=== PATIENT | female | born 1935 | race Caucasian/White ===

== ENCOUNTER 2017-10-10 11:03 | Observation (INO) | payer OTHER ==
[2017-10-09 10:05] VITALS: BMI 23.0
[~2017-10-10] VITALS: Ht 167.6 cm; Wt 65.9 kg
[2017-10-10] VITALS (7 sets, daily range): BP systolic 127–176; BP diastolic 49–77; PULSE 55–69; TEMP 36.3–36.7; O2SAT 94–100; Ht 167.6 cm; Wt 65.9 kg
--- NOTE | 2017-10-10 07:39 | HISTORY & PHYSICAL EXAMINATION ---
DATE OF ADMISSION: 10/10/2017 SUBJECTIVE AND CHIEF COMPLAINT: Left ankle pain. HISTORY OF PRESENT ILLNESS: This is a patient who has been seen for an acute onset of left ankle swelling and pain and difficulty with ambulation. She had been treated for cellulitis with by mouth antibiotics; however, she had persistent pain. Aspiration of the left ankle joint was attempted on 2 separate occasions, 1 did not get any aspirate, the other got a very small amount with 1 colony of bacteria ground. She also had an MRI which noted inflammatory tissue around the peroneal tendons and there was questionable for a phlegmon. The patient was seen yesterday 10/08/2017 with persistent pain and swelling and she is now being set up for surgical management. PAST MEDICAL HISTORY: Hypertension, history of low back pain, hiatal hernia and diabetes. SOCIAL HISTORY: The patient denies alcohol and tobacco use. PAST SURGICAL HISTORY: None. CURRENT MEDICATIONS: Vitamin D3 400 mg 1 p.o. daily, biotin 1 mg 1 p.o. daily, vitamin C 500 mg 1 p.o. daily, glipizide 5 mg 1 p.o. b.i.d., metformin ER 500 mg 2 tablets p.o. at bedtime, metronidazole 0.75% topical cream apply to affected area b.i.d., aspirin 81 mg 1 p.o. daily, tolterodine ER 4 mg 1 p.o. daily, atenolol 50 mg 1 p.o. daily; Estring 2 mg vaginal ring, insert 1 vaginal ring every 90 days; nitrofurantoin 100 mg 1 p.o. every 6 hours, naproxen 500 mg 1 p.o. b.i.d. with food. ALLERGIES: PSEUDOEPHEDRINE, LORATADINE, AND PREDNISONE. FAMILY HISTORY: Noncontributory. OBJECTIVE PHYSICAL EXAMINATION: GENERAL: The patient is alert and oriented x3. He is in no acute distress. She is a well-dressed, well-nourished 82-year-old female. Her affect is appropriate. CARDIOVASCULAR: Heart has a regular rhythm and rate. LUNGS: Clear to auscultation bilateral. Dorsalis pedis, posterior tib pulses are +2/4. LYMPHATIC: No evidence of any swollen lymph nodes. MUSCULOSKELETAL: The patient has a left antalgic gait with partial weightbearing on the left lower extremity. Upon inspection of left lower extremity, the patient is noted to have swelling and edema along the peroneal tendons to the area of the fourth and fifth tarsometatarsal joints. This area of edema is pitting. It is tender to palpation. There is mild erythema noted, no obvious warmth when compared to the rest of the foot. She has also noted to have tenderness at the anterolateral aspect of the ankle joint. Any passive range of motion causes pain in the left ankle. No strength testing was performed secondary to pain. SKIN: There are no scars, rashes or ulcers noted. NEUROLOGIC: Sensation normal and intact distally, left lower extremity. X-RAY EXAM: MRI of the left ankle was reviewed. There is mild tibiotalar fusion. There is also inflammatory tissue around the peroneal tendons. ASSESSMENT AND DIAGNOSES: 1. Left ankle peroneal tendonitis with possible phlegmon surrounding the peroneal tendons. 2. Left ankle pain with possible septic joint. PLAN: Above assessment was discussed with the patient. At this time, it was recommended the patient undergo a left ankle arthroscopy with synovectomy and debridement of the ankle joint and open tenosynovectomy of the peroneal tendons. All potential risks, benefits, complications, alternatives and rehab have been discussed with the patient and at this time, she wishes to proceed with the surgery as indicated. She will be scheduled for the surgery on 10/10/2017. MELIA
[~2017-10-10 11:03] MED LIST: ASPI81TA28 PO; ATEN50TA8 PO; BIOT1CAP8 PO; CEFAZOLIN 2000MG IV PUSH 15 ML IV SCH; DTRSR4 PO; GLC/500 PO; GLIP-197 PO; LACTATED RINGER'S 1000ML 1,000 ML IV SCH; NAPR-1169 PO; PREMARIN TOP; ROPIVACAINE 0.5% 5 MG/ML 30 ML VIAL ONE
[2017-10-10] MEDS ORDERED: ATROPINE SULFATE 0.1 MG/ML 5ML SYR IV PRN (11:15)
[2017-10-10] MEDS ORDERED: EpHEDrine SULFATE INJ 50 MG/ML AMP IV PRN (11:15)
[2017-10-10] MEDS ORDERED: FENTANYL CITRATE INJ 50 MCG/1 ML 2 ML VIAL IV PRN (11:15)
[2017-10-10] MEDS ORDERED: ONDANSETRON INJ 2 MG/ML 2 ML VIAL IV PRN ×2 (11:15→18:15)
[2017-10-10] MEDS ORDERED: CRAN500C2 PO (11:51)
[2017-10-10] MEDS ORDERED: BUPIVACAINE/EPINEPHRINE 0.5% MPF 1:200,000 30 ML VIAL ONE (12:03)
[2017-10-10] MEDS ORDERED: EpINEphrine HCL INJ 1 MG/ML 1ML SYRINGE ONE (12:03)
[2017-10-10] MEDS ORDERED: LIDOCAINE HCL 2% 2 ML VIAL (20MG/ML) ONE (12:46)
[2017-10-10] MEDS ORDERED: PROPOFOL IV EMULSION 10 MG/ML 20 ML VIAL IV ONE (12:46)
[2017-10-10] MEDS ORDERED: MIDAZOLAM HCL 1 MG/ML 2ML VIAL ONE (12:46)
[2017-10-10] MEDS ORDERED: ONDANSETRON INJ 2 MG/ML 2 ML VIAL ONE (12:46)
[2017-10-10] MEDS ORDERED: DEXAMETHASONE SOD INJ 4 MG/ML VIAL ONE (12:46)
[2017-10-10] MEDS ORDERED: FENTANYL CITRATE INJ 50 MCG/1 ML 2 ML VIAL ONE (12:47)
[2017-10-10] MEDS ORDERED: CIPROFLOXACIN 400MG / 200ML D5W ONE (13:22)
[2017-10-10] MEDS ORDERED: CIPROFLOXACIN 400MG / 200ML D5W IV ONE (13:30)
[2017-10-10 14:13] LABS: ISTAT CREATININE 0.8 mg/dl (0.6-1.3); ISTAT IONIZED CALCIUM 1.28 mmol/l (1.12-1.32); ISTAT POTASSIUM 3.9 mEq/L (3.3-5.0)
--- NOTE | 2017-10-10 15:05 | History & Physical Bridge Note ---
H&P Re-Evaluation Bridge Note: I have examined the patient, reviewed the History & Physical and in the interval since the performance of the History & Physical I have noted the following changes of clinical significance: No changes noted
[2017-10-10] MEDS ORDERED: BACITRACIN 50000 UNIT VIAL ONE (15:22)
[2017-10-10] MEDS ORDERED: GLYCOPYRROLATE INJ 0.2 MG/ML VIAL ONE (16:28)
--- NOTE | 2017-10-10 17:51 | [facility] Post Operative Brief Note ---
Immediate Operative Summary Operative Date Oct 10, 2017. Pre-Operative Diagnosis Left ankle peroneal tendonitis with possible phlegmon surrounding the peroneal tendons. Left ankle pain with possible septic joint. Post-Operative Diagnosis Left ankle severe peroneal tenosynovitis peroneal tendons. Partial tears of the peroneus longus and brevis Left ankle synovitis Left ankle lateral meniscoid lesion Exostosis lateral calcaneus Procedure(s) Performed 1. Left Ankle Arthroscopy with resection lateral meniscoid lesion, 2. Synovectomy ankle joint 3. Open Tenosynovectomy peroneus longus and brevis tendons 4. Debridement peroneus longus and brevis 5. Exostosectomy of lateral calcaneus Surgeon Dr. Jim Doll Transfer Controller Surgeon(s) none Estimated Blood Loss 5cc Findings Consistent with Post-Op Diagnosis Specimens microbiology for gram stain, aerobic and anaerobic cultures 1. tenosynovitis- left ankle Drains None Anesthesia Type General Regional Complication(s) none Disposition Accompanied Pt To Recover: no Disposition: Recovery Room / PACU
[2017-10-10] MEDS ORDERED: NON-FORMULARY MEDICATION (Biotin 1 MG) PO SCH (18:15)
[2017-10-10] MEDS ORDERED: CEFAZOLIN IV 1,000 MG in DEXTROSE 5% 50ML 50 ML IV SCH (18:15)
[2017-10-10] MEDS ORDERED: ALUMINUM/MAGNESIUM/SIMETH (MAALOX MAX) 30 ML UDC PO PRN (18:15)
--- NOTE | 2017-10-10 19:09 | Anesthesiology Progress Note ---
Anesthesia Post Op Note Date & Time Oct 10, 2017 at 19:09 Vital Signs Pain Intensity: 0 Vital Signs Past 12 Hours Date Time Temp Pulse Resp B/P (MAP) Pulse Ox O2 Delivery O2 Flow Rate FiO2 10/10/17 18:46 163/58 10/10/17 18:43 53 14 10/10/17 18:43 56 14 99 10/10/17 18:41 148/84 10/10/17 18:38 56 17 10/10/17 18:38 56 17 99 10/10/17 18:37 36.2 10/10/17 18:36 157/61 10/10/17 18:33 56 18 98 10/10/17 18:33 57 18 10/10/17 18:32 57 15 10/10/17 18:32 57 15 98 10/10/17 18:31 158/65 10/10/17 18:27 55 15 10/10/17 18:27 54 15 98 10/10/17 18:26 161/59 10/10/17 18:22 58 14 10/10/17 18:22 56 14 97 10/10/17 18:21 161/74 10/10/17 18:18 57 17 10/10/17 18:18 61 17 99 10/10/17 18:16 158/58 10/10/17 18:13 57 14 100 10/10/17 18:13 57 14 10/10/17 18:12 56 19 10/10/17 18:12 56 19 100 10/10/17 18:11 148/56 10/10/17 18:07 57 18 10/10/17 18:07 56 18 100 10/10/17 18:06 144/59 10/10/17 18:02 55 20 10/10/17 18:02 55 20 100 10/10/17 18:01 150/55 10/10/17 17:57 36.0 58 16 144/48 99 Oxymask 10 10/10/17 17:57 56 12 144/48 99 18 17:57 56 12 10/10/17 11:51 36.6 55 20 151/49 (83) 100 Room Air Notes Mental Status: alert / awake / arousable, participated in evaluation Pt Amnestic to Procedure: Yes Nausea / Vomiting: adequately controlled Pain: adequately controlled Airway Patency, RR, SpO2: stable & adequate BP & HR: stable & adequate Hydration State: stable & adequate Anesthetic Complications: no major complications apparent
[2017-10-10] MEDS ORDERED: POTASSIUM CHLORIDE INJ 10 MEQ in SODIUM CHLORIDE 0.9% 1000ML 1,000 ML IV SCH (19:45)
[2017-10-10] MEDS ORDERED: IV FLUIDS COMPLETED PRN (20:15)
--- NOTE | 2017-10-10 20:30 | OPERATIVE REPORT ---
DATE OF OPERATION: 10/10/2017 PREOPERATIVE DIAGNOSES: 1. Left ankle peroneal tendonitis of the peroneus longus and peroneus brevis. 2. Possible phlegmon peroneal tendons. 3. Left ankle pain with possible septic joint. POSTOPERATIVE DIAGNOSES: 1. Left ankle severe peroneal tenosynovitis of the peroneal tendons. 2. Partial tears of the peroneus longus and peroneus brevis. 3. Left ankle synovitis. 4. Left ankle lateral meniscoid lesion. 5. Exostosis of the lateral calcaneus. PROCEDURE: 1. Left ankle arthroscopy with resection of lateral meniscoid lesion. 2. Synovectomy of the ankle joint. 3. Open tenosynovectomy of the peroneus longus and peroneus brevis. 4. Debridement of peroneus longus and peroneus brevis. 5. Exostectomy of the lateral calcaneus. SURGEON: Hardik Doll DO STEEL PLATE CAULKER: None. ANESTHESIA: General with LMA and popliteal block. SPECIMENS: Aerobic, anaerobic, Gram stain cultures, tenosynovitis of the peroneus longus and peroneus brevis. DRAINS: None. COMPLICATIONS: None. BLOOD LOSS: 5 BLOOD LOSS: 5 mL. PERTINENT HISTORY: This is an 82-year-old woman who has had ongoing lateral ankle pain, redness, swelling, intermittently for the last month. She had several courses of oral antibiotics; however, continued to have pain, swelling and redness. She was seen in my orthopedic clinic this last week and radiographs and MRI were reviewed and clinical exam performed. The patient was then scheduled for surgery as indicated. All potential risks, benefits, complications, alternatives, rehab, potential for incomplete relief of symptoms, need for further surgery, DVT, PE, , persistent pain, swelling, scarring, weakness, neurovascular injury, wound complications were discussed with patient and her family and they decided to proceed with the procedure as indicated. DESCRIPTION OF PROCEDURE: The patient had a popliteal block in the preop holding area, then she was taken to the operative suite and placed supine on the operating room table. After review of consent and identification of proper operative site, patient was anesthetized, LMA was placed. Tourniquet was placed high on the left thigh over cast padding. Left lower extremity was then sterilely prepped and draped in usual fashion, elevated and the tourniquet was inflated to 325 mmHg. There was no exsanguination performed due to the possibility of infection of left lower extremity. Next, the ankle joint was injected with approximately 10 mL of 0.5% Marcaine with epinephrine, an 11 blade scalpel was used to make an incision medial to the tibialis anterior followed by placement of blunt trocar and sleeve camera and inflow. Next, lateral portal site was established under direct visualization using 18 gauge spinal needle and 11 blade scalpel incision. Next a 3.5 mm sucker shaver was introduced into the joint and diagnostic arthroscopy commenced, noting no evidence of ongoing infection in the ankle. There was noted to be significant synovitis and there was also noted to be a meniscoid lesion which appears symptomatic in the anterolateral aspect of the ankle. Next, 3.5 mm sucker shaver was then used to perform synovectomy and also resection of the meniscoid lesion of the lateral aspect of the ankle. Once this was completed, the joint surfaces were inspected and probed. There was noted to be no significant osteochondral lesions. There was noted to be area of slight softening along the superior medial aspect of the talus, otherwise unremarkable. At this point, the medial and lateral gutters were inspected and noted to be remarkable and then the arthroscope was then removed from the ankle joint, all excess fluid was expressed from the joint and the portal sites were closed with interrupted 4-0 nylon sutures. Next, a 15 blade scalpel was used to make a long curvilinear incision over the lateral aspect of the peroneal tendons. The incision was deepened through subcutaneous tissue. Meticulous hemostasis was achieved with electrocautery. Full thickness skin flaps were developed. Sensory cutaneous nerves retracted and protected followed by incision of the peroneal tendon sheath with a 15 blade scalpel. The tendons were noted to be coated in significant amount of hypertrophic tenosynovium and fibrous tissue. There appeared to be no obvious abscess or purulent fluid collection at this time. The tendons were retracted and the tendon sheath was then examined and noted to be significant tenosynovitis. Tenosynovectomy was performed of the tendon sheath and then sequentially of the peroneus longus and peroneus brevis with a rongeur and forceps. Once this was completed and there was noted to be several areas of partial tearing of the peroneus longus and peroneus brevis. At this point, the tendons were then sharply debrided with a 15 blade scalpel and a tenotomy scissor and forceps. After debridement and synovectomy had been performed, the tendons were retracted and protected. There was noted to be hypertrophic exostosis of the lateral aspect of the calcaneus. At this point, the hypertrophic exostosis was then resected using a rongeur. Next, the incision was then copiously irrigated with sterile normal saline. There was no abscess fluid or obvious active infection noted. The peroneal tendons were then placed back in the tendon sheath, and tendon sheath was then closed using 2-0 Vicryl. Next, the dermis was then closed using buried interrupted 3-0 Vicryl, skin was closed with 4-0 nylon. A sterile compressive dressing and bulky plaster splint was applied overwrapped with an Miguel Angel wrap. The foot was held in neutral dorsiflexion, patient was then awakened and tourniquet was released and patient was then taken to recovery in stable condition. I attest to the content of the Intraoperative Record and any orders documented therein. Any exception s are noted below.
[2017-10-10] MEDS ORDERED: GLUCOSE 10 TABS/TUBE PO PRN (20:45)
[2017-10-10] MEDS ORDERED: GLUCOSE 40% GEL 15 GM TUBE PO PRN (20:45)
[2017-10-10] MEDS ORDERED: DEXTROSE 50% 50 ML SYR IV PRN (20:45)
[2017-10-10] MEDS ORDERED: GLUCAGON FOR INJ 1 MG VIAL SQ PRN (20:45)
[2017-10-10] MEDS ORDERED: INSULIN ASPART 100 UNITS/ML 3 ML PEN SC SCH (21:00)
[2017-10-10] MEDS ORDERED: NAPROXEN 250 MG TAB PO SCH (21:00)
[2017-10-10] MEDS ORDERED: ASPIRIN 81 MG ECTAB PO SCH (21:00)
[2017-10-10] MEDS: DOCUSATE SODIUM 100 MG CAP PO SCH ×2 (21:57→22:02)
[2017-10-10] MEDS: TOLTERODINE TARTRATE LA 4 MG CAPCR PO SCH (21:57)
[2017-10-10] MEDS ORDERED: CIPROFLOXACIN 250 MG TAB PO SCH (22:00)
[2017-10-10] MEDS: CEFAZOLIN IV 1,000 MG in SYRINGE 0 ML IV SCH (23:55)
[2017-10-11] MEDS: OXYCODONE HCL IR 5 MG TAB (IMMEDIATE RELEASE) PO PRN (01:56)
[2017-10-11 03:20] VITALS: BP 134/62; PULSE 68; TEMP 36.4; O2SAT 96
[2017-10-11] MEDS ORDERED: INSULIN ASPART 100 UNITS/ML 3 ML PEN SC ONE (04:00)
[2017-10-11] MEDS ORDERED: INSULIN GLARGINE SOLOSTAR 100 UNITS/ML 3 ML PEN SC ONE ×2 (04:00→12:45)
[2017-10-11 04:39] LABS: BASO % 0.1 %; BASO ABS # 0.01 K/uL (0-0.2); HEMATOCRIT 27.9 % (37-47); HEMOGLOBIN 9.3 g/dL (12.0-16.0); IG# 0.01 K/uL (0.00-0.02); LYMPH % 14.2 %; LYMPH ABS # 0.95 K/uL (1.2-3.4); MEAN CELL VOLUME 90.3 fL (80-100); MEAN CORPUSCULAR HEMOGLOBIN 30.1 pg (25-34); MEAN CORPUSCULAR HGB CONC 33.3 g/dl (32-36); MEAN PLATELET VOLUME 10.1 fL (7.4-10.4); MONO % 4.9 %; MONO ABS # 0.33 K/uL (0.11-0.59); NEUT % 80.7 %; NEUT ABS # 5.39 K/uL (1.4-6.5); PLATELET COUNT 164 K/uL (130-400); RED CELL DISTRIBUTION WIDTH CV 13.5 % (11.5-14.5); RED CELL DISTRIBUTION WIDTH SD 43.9 fL (36.4-46.3); WHITE BLOOD COUNT 6.69 K/uL (4.8-10.8)
[2017-10-11 04:43] LABS: CALCIUM 8.3 mg/dl (8.5-10.1); CREATININE 1.14 mg/dl (0.60-1.20); POTASSIUM 4.1 mmol/L (3.5-5.1)
[2017-10-11] MEDS ORDERED: MAGNESIUM SULFATE 1GM / D5W 1 GM in PREMIXED IN D5W 100 ML IV ONE (05:15)
[2017-10-11] MEDS ORDERED: POTASSIUM CHLORIDE INJ 10 MEQ in SODIUM CHLORIDE 0.9% 1000ML 1,000 ML IV SCH (05:15)
[2017-10-11 07:10] VITALS: BP 136/67; PULSE 65; TEMP 36.6; O2SAT 96
[2017-10-11] MEDS ORDERED: PANTOprazole INJ 40 MG in SYRINGE 0 ML IV ONE (07:15)
[2017-10-11] MEDS: CEFAZOLIN IV 1,000 MG in SYRINGE 0 ML IV SCH (07:50)
[2017-10-11] MEDS: DOCUSATE SODIUM 100 MG CAP PO SCH ×2 (07:50→21:15)
[2017-10-11] MEDS: MULTIVITAMIN TAB PO SCH (07:51)
--- NOTE | 2017-10-11 07:56 | Orthopedic Progress Note ---
Orthopedic Progress Note Date of Service Oct 11, 2017. Subjective Post OP Day: 1 Reports: feeling well, pain controlled w PO medications, Denies: complaints, chest pain, SOB, nausea / vomiting, light headedness, calf pain Objective N/V intact, splint C/D/I, dressing C/D/I, A&O x3, toes mobile Date Time Temp Pulse Resp B/P (MAP) Pulse Ox O2 Delivery O2 Flow Rate FiO2 10/11/17 03:20 36.4 68 17 134/62 (86) 96 Room Air 10/11/17 00:00 Room Air 10/10/17 22:55 36.7 68 16 135/77 (96) 94 Room Air 10/10/17 22:02 36.3 69 16 144/64 (90) 95 Room Air 10/10/17 21:00 36.4 61 16 127/57 (80) 99 Nasal Cannula 2.5 10/10/17 20:06 36.3 56 16 171/65 (100) 99 Nasal Cannula 2.5 10/10/17 19:33 36.3 58 16 176/76 (109) 100 Nasal Cannula 2.5 10/10/17 19:00 100 Nasal Cannula 2.0 10/10/17 19:00 57 16 174/65 (101) 100 Nasal Cannula 2.0 10/10/17 19:00 100 Nasal Cannula 2.0 10/10/17 18:46 163/58 10/10/17 18:43 53 14 10/10/17 18:43 56 14 99 10/10/17 18:41 148/84 10/10/17 18:38 56 17 10/10/17 18:38 56 17 99 10/10/17 18:37 36.2 10/10/17 18:36 157/61 10/10/17 18:33 56 18 98 10/10/17 18:33 57 18 10/10/17 18:32 57 15 10/10/17 18:32 57 15 98 10/10/17 18:31 158/65 10/10/17 18:27 55 15 10/10/17 18:27 54 15 98 10/10/17 18:26 161/59 10/10/17 18:22 58 14 10/10/17 18:22 56 14 97 10/10/17 18:21 161/74 10/10/17 18:18 57 17 10/10/17 18:18 61 17 99 10/10/17 18:16 158/58 10/10/17 18:13 57 14 100 10/10/17 18:13 57 14 10/10/17 18:12 56 19 10/10/17 18:12 56 19 100 10/10/17 18:11 148/56 10/10/17 18:07 57 18 10/10/17 18:07 56 18 100 10/10/17 18:06 144/59 10/10/17 18:02 55 20 10/10/17 18:02 55 20 100 10/10/17 18:01 150/55 10/10/17 17:57 36.0 58 16 144/48 99 Oxymask 10 10/10/17 17:57 56 12 144/48 99 10/10/17 17:57 56 12 10/10/17 11:51 36.6 55 20 151/49 (83) 100 Room Air Laboratory Results 24 Hours: Test 10/11/17 04:11 White Blood Count 6.69 K/uL Red Blood Count 3.09 M/uL Hemoglobin 9.3 g/dL Hematocrit 27.9 % Mean Corpuscular Volume 90.3 fL Mean Corpuscular Hemoglobin 30.1 pg Mean Corpuscular Hemoglobin Concent 33.3 g/dl Platelet Count 164 K/uL Mean Platelet Volume 10.1 fL Neutrophils (%) (Auto) 80.7 % Lymphocytes (%) (Auto) 14.2 % Monocytes (%) (Auto) 4.9 % Eosinophils (%) (Auto) 0.0 % Basophils (%) (Auto) 0.1 % Neutrophils # (Auto) 5.39 K/uL Lymphocytes # (Auto) 0.95 K/uL Monocytes # (Auto) 0.33 K/uL Eosinophils # (Auto) 0.00 K/uL Basophils # (Auto) 0.01 K/uL Assessment & Plan Assessment: POD #1 s/p Left ankle arthroscopy with resection of lateral meniscoid lesion, Synovectomy of the ankle joint, Open tenosynovectomy of the peroneus longus and peroneus brevis, Debridement of peroneus longus and peroneus brevis, Exostectomy of the lateral calcaneus. -soft tissue intra-op cultures pending -remain in splint, ice/elevate for swelling, hold ASA patient noted to be anemic post op, has noted dark stools lately and heme +, discussed with dr gilbert, will order GI Consult for further evaluation as well as start Protonix
--- NOTE | 2017-10-11 08:20 | INTERNAL MEDICINE CONSULTATION ---
DATE OF CONSULTATION: 10/11/2017 PRIMARY CARE DOCTOR: Dr. Fleming from [place], [place]. REASON FOR CONSULTATION: Patient seen at request of Dr. Doll/Mr. Vlad Aranda PA-C for postop medical management. HISTORY OF PRESENT ILLNESS: Medical history significant for hypertension, hyperlipidemia, DM2 on oral meds, nonocclusive CAD, history of recurrent UTIs, urinary retention requiring intermittent straight cath. Patient has had left ankle swelling, pain for about a month now. Incomplete response to antibiotics, aspiration. Outpatient MRI showed inflammatory tissue around peroneal tendon questionable phlegmon. Patient underwent left ankle surgery yesterday. Patient told surgeon about few days history of cloudy urine, increased urinary frequency. No fever, no chills. Postop, no chest pain, or shortness of breath. Left ankle pain tolerable. MEDICAL HISTORY: As above. Normal endoscopy about 5 years ago as per patient. Last seen by [facility] May 2017. Last echo March 2017, EF 55-60%, minimal MR, TR, minimal aortic insufficiency. Last stress test 2013, no significant reversible ischemia. SURGERIES: She has had hysterectomy, ankle surgery, bladder tuck, breast biopsy. HOME MEDICATIONS: Include, aspirin, atenolol, biotin, glipizide, metformin, naproxen, tolterodine, Premarin. ALLERGIES: IBUPROFEN, LORATADINE, PREDNISONE, PSEUDOEPHEDRINE. FAMILY HISTORY: Heart disease, diabetes, breast cancer. PERSONAL AND SOCIAL HISTORY: Nonsmoker, no chronic intake of alcoholic beverages. Retired inclusion special education teacher. REVIEW OF SYSTEMS: As per HPI, occasional reflux symptoms, dark stools for some time now. No hematemesis, coffee-ground emesis. All other ROS negative. PHYSICAL EXAMINATION: VITAL SIGNS: Blood pressure was noted to be 134/62, pulse rate 68, RR 17, temperature 36.4, sats 96 on room air. GENERAL: Noted to be pleasant, comfortable, no respiratory distress. Looks younger for stated age. SKIN: Pallor, warm. HEENT: Pale palpebral conjuctivae. No ptosis. Dry mucosa. NECK: Short, supple. CHEST: Decreased breath sounds. No tenderness. HEART: Regular rate and rhythm, no murmur. ABDOMEN: Some distention, nontender. RECTAL: Intact sphincter, dark brown stool, heme positive. NEUROLOGIC: Coherent. No gross focality. EXTREMITIES: Dressing on the left lower extremity. Minimal LLE tenderness. LABORATORY STUDIES: Hemoglobin was noted to be 9.3, hematocrit 27.9, white cell count 6.67, platelets noted to be 164. Sodium noted to be 135, potassium 4.1, chloride 104, CO2 of 23, BUN 31, creatinine 1.14, glucose 197. UA, nitrite positive. ASSESSMENT: 1. Left ankle swelling, possible infection sp surgery. Patient not septic. 2. Complicated urinary tract infection, no sepsis. hx urinary retention, intermittent straight cath at home Currently on Cipro Rx 3. Upper gastrointestinal bleed. Suspect slow bleed given history of dark stools over the last several months. Possible etiologies include gastritis, peptic ulcer disease, tumor. 4. Anemia secondary above 5. HTN, stable 6. hx nonocclusive coronary artery disease as per records. 7. DM2 on oral meds, unknown baseline. Blood sugars slightly elevated following perioperative steroids. RECOMMENDATIONS : follow left ankle fluid CS. Follow urine cultures, Continue Cipro. (Watch out for anticholinergic symptoms from Cipro given patient's age.) Hold home ASA for now until source of GI bleed elucidated. Anemia workup Serial H&H, transfuse pRBC if hemoglobin less than 8. (hx CAD) IV PPI for now for presumptive UGIB, GI consult RE UGIB if Orthopedics agreeable. Basal insulin, ISS BG goal 140-180. Check hemoglobin A1c. DVT prophylaxis, SCDs RE GI bleed. Thank you very much for this consultation. Dr. Davies will follow the patient's progress. ADDENDUM : Case discussed with Mr. Lamonte Skelton, Orthopedic PA-C talent acquisition operations manager. He agrees with recommended GI workup. He will relay recommendations to Dr. Doll. [facility] CENTERLaura
[2017-10-11 08:23] LABS: HEMOGLOBIN A1C 6.5 % (4.5-5.6)
[2017-10-11] MEDS ORDERED: METFORMIN HCL 500 MG TAB PO SCH (09:00)
[2017-10-11] MEDS ORDERED: CRANBERRY PO SCH (09:00)
--- NOTE | 2017-10-11 09:01 | Gastrointestinal Consultation ---
Gastrointestinal Consultation Date of Consultation: Oct 11, 2017 History of Present Illness Patient is a 82 year old female who was admitted to the hospital for surgical evaluation of her left ankle. She was found to have some tenderness ruptured as well as areas that need to be debrided after having had antibiotics for about 2 months. Her surgery apparently went without issues last evening, general medicine was consulted for medical management. During their evaluation she reported that she's been having some intermittent dark stools over the last month, and was noted to be anemic. Her stool was checked apparently was heme positive. She denies any ongoing or active GI blood loss, last bowel movement was 2 and possibly 3 days prior. Over the last month she does report some intermittent dark stools but not black as she described it. She has been taking some Tylenol but denies any nonsteroidal anti -inflammatories. She says that she's had endoscopies in the past most recently about 5 years ago however those records are not available to us for review. She does have intermittent infrequent heartburn but feels well at this time. She tolerated a normal diet last evening. Vital signs pre-and postoperatively have been within normal limits. Social History Smoking Status: Never Smoker Allergies Coded Allergies: Ibuprofen (Verified Allergy, Unknown, RED FACE RASH WITH HIGHER DOSE, 10/10) Loratadine (Verified Adverse Reaction, Unknown, HEART FLUTTTERS, 10/10/17) Prednisone (Verified Adverse Reaction, Unknown, HEART RACES, 10/10/17) Pseudoephedrine (Verified Adverse Reaction, Unknown, HEART FLUTTTERS, 10/10) Current Medications Home Meds and Scripts Medications Dose Route/Sig Max Daily Dose Days Date Category Dose Instructions Cranberry (Cranberry (Vaccinium Macrocarp) 500 Mg Cap 1,000 Mg PO DAILY 10/10/17 Reported Naprosyn (Naproxen) 500 Mg Tab 500 Mg PO BID 10/09/17 Reported PT WILL CHECK WITH SURGEON Tenormin (Atenolol) 50 Mg Tab 50 Mg PO QAM 10/09/17 Reported Detrol LA (Tolterodine Tartrate) 4 Mg Capcr 1 Cap PO QPM 90 10/09/17 Reported Aspirin Ec (Aspirin) 81 Mg Tab 81 Mg PO QPM 10/09/17 Reported PT WILL CHECK WITH SURGEON [Premarin Cr] 1 Dose TOP 2XWEEK 10/09/17 Reported Glucophage (Metformin Hcl) 500 Mg Tab 500 Mg PO QAM 10/09/17 Reported Glipizide Er (Glipizide) 5 Mg Tab 1 Tab PO BID 90 10/09/17 Reported Biotin 1 Mg Cap 1 Mg PO 3XWEEK 10/09/17 Reported Review of Systems Constitutional: No see HPI, No fever, No chills, No sweats, No weight loss, No weakness, No fatigue, No problem reported Eyes: No see HPI, No worsening of vision, No eye pain, No redness, No discharge , No diplopia, No problem reported ENT: No see HPI, No hearing loss, No unusual epistaxis, No nasal symptoms, No sore throat, No tinnitus, No dental problems, No trouble swallowing, No pain on swallowing, No problem reported Respiratory: No see HPI, No cough, No sputum, No wheezing, No shortness of breath, No dyspnea on exertion, No dyspnea at rest, No hemoptysis, No problem reported Cardiac: No see HPI, No chest pain, No orthopnea, No PND, No edema, No claudication, No palpitations, No problem reported Abdomen: + see HPI Musculoskeletal: + see HPI, No joint pain, No muscle pain, No swelling, No calf pain, No problem reported Female : No see HPI, No dysuria, No urinary frequency, No hematuria, No incontinence, No abnormal vaginal bleeding, No vaginal discharge, No problem reported Neuro: No see HPI, No memory loss, No paralysis, No weakness, No numbness/ tingling, No vertigo, No balance problems, No problem reported Heme: + see HPI Physical Exam Date Time Temp Pulse Resp B/P (MAP) Pulse Ox O2 Delivery O2 Flow Rate FiO2 10/11/17 07:10 36.6 65 16 136/67 (90) 96 Room Air 10/11/17 03:20 36.4 68 17 134/62 (86) 96 Room Air 10/11/17 00:00 Room Air 10/10/17 22:55 36.7 68 16 135/77 (96) 94 Room Air 10/10/17 22:02 36.3 69 16 144/64 (90) 95 Room Air 10/10/17 21:00 36.4 61 16 127/57 (80) 99 Nasal Cannula 2.5 10/10/17 20:06 36.3 56 16 171/65 (100) 99 Nasal Cannula 2.5 2/16/18 19:33 36.3 58 16 176/76 (109) 100 Nasal Cannula 2.5 2/16/18 19:00 100 Nasal Cannula 2.0 2/16/18 19:00 57 16 174/65 (101) 100 Nasal Cannula 2.0 2/16/18 19:00 100 Nasal Cannula 2.0 2/16/18 18:46 163/58 2/16/18 18:43 53 14 2/16/18 18:43 56 14 99 2/16/18 18:41 148/84 2/16/18 18:38 56 17 2/16/18 18:38 56 17 99 2/16/18 18:37 36.2 2/16/18 18:36 157/61 2/16/18 18:33 56 18 98 2/16/18 18:33 57 18 2/16/18 18:32 57 15 2/16/18 18:32 57 15 98 2/16/18 18:31 158/65 2/16/18 18:27 55 15 2/16/18 18:27 54 15 98 2/16/18 18:26 161/59 2/16/18 18:22 58 14 2/16/18 18:22 56 14 97 2/16/18 18:21 161/74 2/16/18 18:18 57 17 2/16/18 18:18 61 17 99 2/16/18 18:16 158/58 2/16/18 18:13 57 14 100 2/16/18 18:13 57 14 2/16/18 18:12 56 19 2/16/18 18:12 56 19 100 2/16/18 18:11 148/56 2/16/18 18:07 57 18 2/16/18 18:07 56 18 100 2/16/18 18:06 144/59 2/16/18 18:02 55 20 2/16/18 18:02 55 20 100 2/16/18 18:01 150/55 2/16/18 17:57 36.0 58 16 144/48 99 Oxymask 10 2/16/18 17:57 56 12 144/48 99 2/16/18 17:57 56 12 2/16/18 11:51 36.6 55 20 151/49 (83) 100 Room Air General Appearance: WD/WN Eyes: normal inspection ENT: normal ENT inspection Neck: supple, no adenopathy Respiratory/Chest: chest non-tender, lungs clear, normal breath sounds Cardiovascular: regular rate, rhythm, no edema, no gallop Abdomen: normal bowel sounds, non tender, soft, no organomegaly Neurologic/Psych: shift superintendent caustic cresylate II-XII nml as tested Skin: normal color Laboratory Results Last 24 Hours Test 10/10/17 11:40 10/10/17 13:50 10/10/17 18:01 10/10/17 21:04 Urine Color YELLOW Urine Appearance TURBID Urine pH 6.5 Urine Specific [place] 1.017 Urine Protein 2+ Urine Glucose (UA) NEG Urine Ketones NEG Urine Occult Blood 3+ Urine Nitrite POS Urine Bilirubin NEG Urine Urobilinogen NEG Urine Leukocyte Esterase LARGE Urine WBC (Auto) >30 /hpf Urine RBC (Auto) >30 /hpf Urine Hyaline Casts (Auto) 1-5 /lpf Urine Epithelial Cells (Auto) >30 /lpf Urine Bacteria (Auto) 4+ Urine Pathogenic Casts /lpf Urine Yeast (Auto) Bedside Hemoglobin 10.2 g/dl Bedside Hematocrit 30 % Bedside Sodium 141 mEq/L Bedside Potassium 3.9 mEq/L Bedside Chloride 102 mEq/L Bedside Total CO2 25 mEq/l Anion Gap 18.0 mmol/L Bedside Blood Urea Nitrogen 33 mg/dl Bedside Creatinine 0.8 mg/dl Bedside Glucose (other) 110 mg/dl Bedside Ionized Calcium (Coy) 1.28 mmol/l Bedside Glucose 139 mg/dl 245 mg/dl Test 10/11/17 04:11 10/11/17 04:34 10/11/17 07:56 White Blood Count 6.69 K/uL Red Blood Count 3.09 M/uL Hemoglobin 9.3 g/dL Hematocrit 27.9 % Mean Corpuscular Volume 90.3 fL Mean Corpuscular Hemoglobin 30.1 pg Mean Corpuscular Hemoglobin Concent 33.3 g/dl Platelet Count 164 K/uL Mean Platelet Volume 10.1 fL Neutrophils (%) (Auto) 80.7 % Lymphocytes (%) (Auto) 14.2 % Monocytes (%) (Auto) 4.9 % Eosinophils (%) (Auto) 0.0 % Basophils (%) (Auto) 0.1 % Neutrophils # (Auto) 5.39 K/uL Lymphocytes # (Auto) 0.95 K/uL Monocytes # (Auto) 0.33 K/uL Eosinophils # (Auto) 0.00 K/uL Basophils # (Auto) 0.01 K/uL RDW Standard Deviation 43.9 fL RDW Coefficient of Variation 13.5 % Immature Granulocyte % (Auto) 0.1 % Immature Granulocyte # (Auto) 0.01 K/uL Sodium Level 135 mmol/L Potassium Level 4.1 mmol/L Chloride Level 104 mmol/L Carbon Dioxide Level 23 mmol/L Anion Gap 8.0 mmol/L Blood Urea Nitrogen 31 mg/dl Creatinine 1.14 mg/dl Est Creatinine Clear Calc Drug Dose 34.4 ml/min Estimated GFR () 51.1 Estimated GFR (Non- 44.1 BUN/Creatinine Ratio 26.9 Random Glucose 197 mg/dl Estimated Average Glucose 140 mg/dl Hemoglobin A1c 6.5 % Calcium Level 8.3 mg/dl Magnesium Level 1.6 mg/dl Bedside Glucose 195 mg/dl 175 mg/dl Impression Patient is a 82 year old female noted for orthopedic surgery of ankle noted to have anemia and heme positive stools. She is without evidence of acute GI bleeding. Have an anemia with heme positivity. After her recovery phase she should have outpatient evaluation for both EGD colonoscopy for her anemia. Pending clearance from her primary care provider. She has no evidence right now of any acute ongoing active GI bleeding. PPI once or twice daily orally should suffice for GI protection while she is in the hospital. Okay for regular diet. Avoidance of NSAIDs if possible. Please call with any clinical change, signs, or symptoms. Thank you for the consultation and call with questions.
[2017-10-11] MEDS: CIPROFLOXACIN 250 MG TAB PO SCH ×2 (09:34→21:15)
[2017-10-11 11:47] VITALS: BP 124/66; PULSE 57; TEMP 36.6; O2SAT 98
[2017-10-11] MEDS ORDERED: NURSING VERBAL MED ORDER ONE (12:15)
[2017-10-11 12:29] LABS: HEMATOCRIT 29.3 % (37-47); HEMOGLOBIN 9.9 g/dL (12.0-16.0); RETIC COUNT % 2.4 % (0.5-2.0)
[2017-10-11 12:43] LABS: INR 1.1 (0.9-1.1); PTT PATIENT 25.9 SECONDS (21.0-31.0)
[2017-10-11] MEDS: INSULIN ASPART 100 UNITS/ML 3 ML PEN SC SCH ×3 (13:10→20:26)
[2017-10-11 15:00] VITALS: BP 138/63; PULSE 55; TEMP 36.4; O2SAT 99
--- NOTE | 2017-10-11 16:00 | Progress Note ---
Internal Med Progress Note Date of Service: Oct 11, 2017. Provider Documentation: SUBJECTIVE: Seen and examined at bedside leg pain is controlled Denies chest pain, SOB, dizziness, abd pain Reports increased Urinary frequency No other complaints Family at bedside OBJECTIVE: Vital Signs-as noted below Physical Exam: General Appearance:Moderately built and nourished, no apparent distress Head: normocephalic, Atraumatic Eyes: normal inspection, EOMI, PERRL Neck: supple, Trachea midline Respiratory/Chest: Normal breath sounds, CTA Cardiovascular: S1, S2, No murmur Abdomen/GI:Soft, Non tender, Bowel sounds present Extremities/Musculoskelatal:normal inspection, LLE in bandage, no edema Neurologic/Psych:AAOX3, grossly no focal neurological deficits Skin: normal color, warm Lab data as noted below. ASSESSMENT & PLAN: Left ankle severe peroneal tenosynovitis and Partial tears of peroneus muscles Left ankle lateral meniscoid lesion. Exostosis of the lateral calcaneus. S/P Ankle surgery POD # 1 Continue management per Primary team Pain control Bowel regimen to prevent constipation Monitor for Post Op anemia PT/OT Complicated UTI H/O Urinary retention, patient intermittently straight cath at home Urine culture:Pending Continue Cipro GI bleeding Patient reports H/O Hemorrhoid Positive FOBT Anemia work up normal Continue PPI Appreciate GI input EGD/Colonoscopy as outpatient No active bleeding issues Monitor Hb ASA on hold HTN Stable Continue usual meds Hypomagnesemia: Replace and monitor H/O nonocclusive CAD Denies chest pain Continue home meds DM II: A1C:6.5 Hold PO meds Continue ISS, Lantus while hospitalized DVT Px: SCDs Re: GI bleed. Disposition: Per Primary Team Vital Signs: Date Time Temp Pulse Resp B/P (MAP) Pulse Ox O2 Delivery O2 Flow Rate FiO2 10/11/17 15:00 36.4 55 18 138/63 (88) 99 Room Air 10/11/17 11:47 36.6 57 16 124/66 (85) 98 Room Air 10/11/17 07:30 Room Air 10/11/17 07:10 36.6 65 16 136/67 (90) 96 Room Air 10/11/17 03:20 36.4 68 17 134/62 (86) 96 Room Air 10/11/17 00:00 Room Air 2/16/18 22:55 36.7 68 16 135/77 (96) 94 Room Air 2/16/18 22:02 36.3 69 16 144/64 (90) 95 Room Air 2/16/18 21:00 36.4 61 16 127/57 (80) 99 Nasal Cannula 2.5 2/16/18 20:06 36.3 56 16 171/65 (100) 99 Nasal Cannula 2.5 2/16/18 19:33 36.3 58 16 176/76 (109) 100 Nasal Cannula 2.5 2/16/18 19:00 100 Nasal Cannula 2.0 2/16/18 19:00 57 16 174/65 (101) 100 Nasal Cannula 2.0 2/16/18 19:00 100 Nasal Cannula 2.0 2/16/18 18:46 163/58 2/16/18 18:43 53 14 2/16/18 18:43 56 14 99 2/16/18 18:41 148/84 2/16/18 18:38 56 17 2/16/18 18:38 56 17 99 2/16/18 18:37 36.2 2/16/18 18:36 157/61 2/16/18 18:33 56 18 98 2/16/18 18:33 57 18 2/16/18 18:32 57 15 2/16/18 18:32 57 15 98 2/16/18 18:31 158/65 2/16/18 18:27 55 15 2/16/18 18:27 54 15 98 2/16/18 18:26 161/59 2/16/18 18:22 58 14 2/16/18 18:22 56 14 97 2/16/18 18:21 161/74 2/16/18 18:18 57 17 2/16/18 18:18 61 17 99 2/16/18 18:16 158/58 2/16/18 18:13 57 14 100 2/16/18 18:13 57 14 2/16/18 18:12 56 19 2/16/18 18:12 56 19 100 2/16/18 18:11 148/56 2/16/18 18:07 57 18 2/16/18 18:07 56 18 100 2/16/18 18:06 144/59 2/16/18 18:02 55 20 2/16/18 18:02 55 20 100 10/10/17 18:01 150/55 10/10/17 17:57 36.0 58 16 144/48 99 Oxymask 10 10/10/17 17:57 56 12 144/48 99 10/10/17 17:57 56 12 Lab Results: Results Past 24 Hours Test 10/10/17 18:01 10/10/17 21:04 10/11/17 04:11 10/11/17 04:34 Range/Units Bedside Glucose 139 245 195 70-90 mg/dl White Blood Count 6.69 4.8-10.8 K/uL Red Blood Count 3.09 4.2-5.4 M/uL Hemoglobin 9.3 12.0-16.0 g/dL Hematocrit 27.9 37-47 % Mean Corpuscular Volume 90.3 80-100 fL Mean Corpuscular Hemoglobin 30.1 25-34 pg Mean Corpuscular Hemoglobin Concent 33.3 32-36 g/dl Platelet Count 164 130-400 K/uL Mean Platelet Volume 10.1 7.4-10.4 fL Neutrophils (%) (Auto) 80.7 % Lymphocytes (%) (Auto) 14.2 % Monocytes (%) (Auto) 4.9 % Eosinophils (%) (Auto) 0.0 % Basophils (%) (Auto) 0.1 % Neutrophils # (Auto) 5.39 1.4-6.5 K/uL Lymphocytes # (Auto) 0.95 1.2-3.4 K/uL Monocytes # (Auto) 0.33 0.11-0.59 K/uL Eosinophils # (Auto) 0.00 0-0.5 K/uL Basophils # (Auto) 0.01 0-0.2 K/uL RDW Standard Deviation 43.9 36.4-46.3 fL RDW Coefficient of Variation 13.5 11.5-14.5 % Immature Granulocyte % (Auto) 0.1 % Immature Granulocyte # (Auto) 0.01 0.00-0.02 K/uL Sodium Level 135 136-145 mmol/L Potassium Level 4.1 3.5-5.1 mmol/L Chloride Level 104 98-107 mmol/L Carbon Dioxide Level 23 21-32 mmol/L Anion Gap 8.0 3-11 mmol/L Blood Urea Nitrogen 31 7-18 mg/dl Creatinine 1.14 0.60-1.20 mg/dl Est Creatinine Clear Calc Drug Dose 34.4 ml/min Estimated GFR () 51.1 Estimated GFR (Non- 44.1 BUN/Creatinine Ratio 26.9 10-20 Random Glucose 197 70-99 mg/dl Estimated Average Glucose 140 mg/dl Hemoglobin A1c 6.5 4.5-5.6 % Calcium Level 8.3 8.5-10.1 mg/dl Magnesium Level 1.6 1.8-2.4 mg/dl Test 10/11/17 07:56 10/11/17 12:04 10/11/17 12:14 Range/Units Bedside Glucose 175 196 70-90 mg/dl Hemoglobin 9.9 12.0-16.0 g/dL Hematocrit 29.3 37-47 % Absolute Reticulocyte Count 0.08 0.02-0.10 10^6/uL Percent Reticulocyte Count 2.4 0.5-2.0 % Prothrombin Time 11.3 9.0-12.0 SECONDS Prothromb Time International Ratio 1.1 0.9-1.1 Activated Partial Thromboplast Time 25.9 21.0-31.0 SECONDS Partial Thromboplastin Ratio 1.0 Iron Level 58 35-150 mcg/dl Total Iron Binding Capacity 306 250-450 mcg/dl Transferrin 225 200-360 mg/dl Transferrin % Saturation 18 15-50 % Ferritin 58.8 8.0-388.0 ng/ml Vitamin B12 Level 538 211-911 pg/mL Folate 13.96 >5.38 ng/mL
[2017-10-11 17:58] LABS: HEMATOCRIT 29.7 % (37-47); HEMOGLOBIN 9.9 g/dL (12.0-16.0)
[2017-10-11] MEDS ORDERED: PANTOprazole INJ 40 MG in SYRINGE 0 ML IV SCH (21:00)
[2017-10-11] MEDS ORDERED: PANTOprazole SOD 40 MG TAB PO SCH (21:00)
[2017-10-11] MEDS: TOLTERODINE TARTRATE LA 4 MG CAPCR PO SCH (21:15)
[2017-10-11] MEDS: PANTOprazole SOD 40 MG TAB PO SCH (21:15)
[2017-10-11 23:05] VITALS: BP 138/55; PULSE 59; TEMP 36.4; O2SAT 95
[2017-10-12 05:35] LABS: HEMATOCRIT 27.3 % (37-47); HEMOGLOBIN 9.2 g/dL (12.0-16.0); MEAN CELL VOLUME 89.2 fL (80-100); MEAN CORPUSCULAR HEMOGLOBIN 30.1 pg (25-34); MEAN CORPUSCULAR HGB CONC 33.7 g/dl (32-36); MEAN PLATELET VOLUME 9.8 fL (7.4-10.4); PLATELET COUNT 155 K/uL (130-400); RED CELL DISTRIBUTION WIDTH CV 13.8 % (11.5-14.5); RED CELL DISTRIBUTION WIDTH SD 44.9 fL (36.4-46.3); WHITE BLOOD COUNT 7.66 K/uL (4.8-10.8)
[2017-10-12] MEDS: MAGNESIUM HYDROXIDE SUSP 30 ML UDC PO PRN (05:37)
[2017-10-12] MEDS: OXYCODONE HCL IR 5 MG TAB (IMMEDIATE RELEASE) PO PRN ×4 (05:38→23:31)
[2017-10-12 05:58] LABS: CALCIUM 8.5 mg/dl (8.5-10.1); CREATININE 1.05 mg/dl (0.60-1.20); POTASSIUM 3.7 mmol/L (3.5-5.1)
--- NOTE | 2017-10-12 07:07 | Orthopedic Progress Note ---
Orthopedic Progress Note Date of Service Oct 12, 2017. Subjective Post OP Day: 2 Reports: feeling well, pain controlled w PO medications, Denies: complaints, chest pain, SOB, nausea / vomiting, light headedness, calf pain Objective N/V intact, splint C/D/I, dressing C/D/I, A&O x3 Date Time Temp Pulse Resp B/P (MAP) Pulse Ox O2 Delivery O2 Flow Rate FiO2 10/12/17 00:00 Room Air 10/11/17 23:05 36.4 59 18 138/55 (82) 95 Room Air 10/11/17 15:27 Room Air 10/11/17 15:00 36.4 55 18 138/63 (88) 99 Room Air 10/11/17 11:47 36.6 57 16 124/66 (85) 98 Room Air 10/11/17 07:30 Room Air 10/11/17 07:10 36.6 65 16 136/67 (90) 96 Room Air Laboratory Results 24 Hours: Test 10/11/17 12:04 10/11/17 17:46 10/12/17 05:02 Hematocrit 29.3 % 29.7 % 27.3 % Hemoglobin 9.9 g/dL 9.9 g/dL 9.2 g/dL Prothromb Time International Ratio 1.1 Prothrombin Time 11.3 SECONDS Assessment & Plan Assessment: POD #2 s/p Left ankle arthroscopy with resection of lateral meniscoid lesion, Synovectomy of the ankle joint, Open tenosynovectomy of the peroneus longus and peroneus brevis, Debridement of peroneus longus and peroneus brevis, Exostectomy of the lateral calcaneus. -soft tissue intra-op cultures pending -remain in splint, ice/elevate for swelling, hold ASA -would like referral to [facility], is NWB on ankle and states she has a lot of steps at home. will discuss with CM GI Consult recommendations: have outpatient eval for both EGD colonoscopy after her recovery phase, no evidence right now of any acute ongoing active GI bleeding. PPI daily, regular diet and avoid NSAIDs.
[2017-10-12 07:13] VITALS: BP 151/67; PULSE 58; TEMP 36.7; O2SAT 97
[2017-10-12] MEDS: INSULIN ASPART 100 UNITS/ML 3 ML PEN SC SCH ×4 (08:00→20:43)
[2017-10-12 08:25] VITALS: BP 150/66; PULSE 60
[2017-10-12] MEDS: PANTOprazole SOD 40 MG TAB PO SCH ×2 (08:26→20:43)
[2017-10-12] MEDS: MULTIVITAMIN TAB PO SCH (08:26)
[2017-10-12] MEDS: DOCUSATE SODIUM 100 MG CAP PO SCH ×2 (08:26→20:44)
[2017-10-12] MEDS: CIPROFLOXACIN 250 MG TAB PO SCH ×2 (08:27→21:06)
[2017-10-12] MEDS: INSULIN GLARGINE SOLOSTAR 100 UNITS/ML 3 ML PEN SC SCH (08:31)
[2017-10-12] MEDS ORDERED: INSULIN GLARGINE SOLOSTAR 100 UNITS/ML 3 ML PEN SC SCH (09:00)
[2017-10-12 15:25] VITALS: BP 107/50; PULSE 50; TEMP 36.9; O2SAT 97
[2017-10-12] MEDS ORDERED: MAGNESIUM SULFATE 1GM / D5W 1 GM in PREMIXED IN D5W 100 ML IV ONE (15:30)
--- NOTE | 2017-10-12 15:38 | Progress Note ---
Internal Med Progress Note Date of Service: Oct 12, 2017. Provider Documentation: SUBJECTIVE: Seen and examined at bedside Doing well leg pain is controlled with meds Denies chest pain, SOB, dizziness, abd pain No bleeding issues Urinary frequency much improved No other complaints Family at bedside OBJECTIVE: Vital Signs-as noted below Physical Exam: General Appearance:Moderately built and nourished, no apparent distress Head: normocephalic, Atraumatic Eyes: normal inspection, EOMI, PERRL Neck: supple, Trachea midline Respiratory/Chest: Normal breath sounds, CTA Cardiovascular: S1, S2, No murmur Abdomen/GI:Soft, Non tender, Bowel sounds present Extremities/Musculoskelatal:normal inspection, LLE in bandage, no edema Neurologic/Psych:AAOX3, grossly no focal neurological deficits Skin: normal color, warm Lab data as noted below. ASSESSMENT & PLAN: Left ankle severe peroneal tenosynovitis and Partial tears of peroneus muscles Left ankle lateral meniscoid lesion. Exostosis of the lateral calcaneus. S/P Ankle surgery POD # 2 Continue management per Primary team Pain control Bowel regimen to prevent constipation Monitor for Post Op anemia PT/OT UTI ruled out H/O Urinary retention, patient intermittently straight cath at home Urine culture:No growth Continue Cipro for now, waiting final cultures Heme Positive Stools: No active bleeding Patient reports H/O Hemorrhoid Positive FOBT Anemia work up normal Continue PPI Appreciate GI input EGD/Colonoscopy as outpatient No active bleeding issues Hb stable Resume ASA, monitor Hb HTN Stable Continue usual meds Hypomagnesemia: Replace and monitor H/O nonocclusive CAD Denies chest pain Continue home meds DM II: A1C:6.5 Hold PO meds Continue ISS, Lantus while hospitalized DVT Px: SCDs . Disposition: Per Primary Team Vital Signs: Date Time Temp Pulse Resp B/P (MAP) Pulse Ox O2 Delivery O2 Flow Rate FiO2 10/12/17 15:25 36.9 50 16 107/50 (69) 97 Room Air 10/12/17 08:25 60 150/66 (94) 10/12/17 07:40 Room Air 10/12/17 07:13 36.7 58 16 151/67 (95) 97 Room Air 10/12/17 00:00 Room Air 10/11/17 23:05 36.4 59 18 138/55 (82) 95 Room Air Lab Results: Results Past 24 Hours Test 10/11/17 16:57 10/11/17 17:46 10/11/17 20:20 10/12/17 05:02 Range/Units Bedside Glucose 140 147 70-90 mg/dl Hemoglobin 9.9 9.2 12.0-16.0 g/dL Hematocrit 29.7 27.3 37-47 % White Blood Count 7.66 4.8-10.8 K/uL Red Blood Count 3.06 4.2-5.4 M/uL Mean Corpuscular Volume 89.2 80-100 fL Mean Corpuscular Hemoglobin 30.1 25-34 pg Mean Corpuscular Hemoglobin Concent 33.7 32-36 g/dl RDW Standard Deviation 44.9 36.4-46.3 fL RDW Coefficient of Variation 13.8 11.5-14.5 % Platelet Count 155 130-400 K/uL Mean Platelet Volume 9.8 7.4-10.4 fL Sodium Level 140 136-145 mmol/L Potassium Level 3.7 3.5-5.1 mmol/L Chloride Level 107 98-107 mmol/L Carbon Dioxide Level 26 21-32 mmol/L Anion Gap 7.0 3-11 mmol/L Blood Urea Nitrogen 27 7-18 mg/dl Creatinine 1.05 0.60-1.20 mg/dl Est Creatinine Clear Calc Drug Dose 37.3 ml/min Estimated GFR () 56.5 Estimated GFR (Non- 48.7 BUN/Creatinine Ratio 25.8 10-20 Random Glucose 129 70-99 mg/dl Calcium Level 8.5 8.5-10.1 mg/dl Magnesium Level 1.6 1.8-2.4 mg/dl Test 10/12/17 07:49 10/12/17 11:53 Range/Units Bedside Glucose 122 114 70-90 mg/dl
[2017-10-12] MEDS: ASPIRIN 81 MG ECTAB PO SCH (20:43)
[2017-10-12] MEDS: TOLTERODINE TARTRATE LA 4 MG CAPCR PO SCH (20:43)
[2017-10-12 23:15] VITALS: BP 139/65; PULSE 58; TEMP 36.8; O2SAT 97
[2017-10-13 05:54] LABS: HEMATOCRIT 28.5 % (37-47); HEMOGLOBIN 9.4 g/dL (12.0-16.0); MEAN CELL VOLUME 91.3 fL (80-100); MEAN CORPUSCULAR HEMOGLOBIN 30.1 pg (25-34); PLATELET COUNT 157 K/uL (130-400); RED CELL DISTRIBUTION WIDTH CV 13.8 % (11.5-14.5); RED CELL DISTRIBUTION WIDTH SD 45.5 fL (36.4-46.3); WHITE BLOOD COUNT 5.87 K/uL (4.8-10.8)
[2017-10-13 06:27] LABS: CALCIUM 8.4 mg/dl (8.5-10.1); CREATININE 1.12 mg/dl (0.60-1.20); POTASSIUM 3.7 mmol/L (3.5-5.1)
[2017-10-13 07:06] VITALS: BP 137/68; PULSE 58; TEMP 36.5; O2SAT 97
[2017-10-13] MEDS: INSULIN ASPART 100 UNITS/ML 3 ML PEN SC SCH ×4 (08:00→20:42)
[2017-10-13] MEDS: MULTIVITAMIN TAB PO SCH (08:25)
[2017-10-13] MEDS: DOCUSATE SODIUM 100 MG CAP PO SCH ×2 (08:25→20:39)
[2017-10-13] MEDS: PANTOprazole SOD 40 MG TAB PO SCH ×2 (08:25→20:39)
[2017-10-13] MEDS: OXYCODONE HCL IR 5 MG TAB (IMMEDIATE RELEASE) PO PRN ×2 (08:28→14:15)
[2017-10-13] MEDS: INSULIN GLARGINE SOLOSTAR 100 UNITS/ML 3 ML PEN SC SCH (08:35)
--- NOTE | 2017-10-13 08:38 | Orthopedic Progress Note ---
Orthopedic Progress Note Date of Service Oct 13, 2017. Subjective Post OP Day: 3 Reports: feeling well, Denies: chest pain, SOB, nausea / vomiting, light headedness, calf pain Additional Notes: Having some mild pain this AM in the ankle. No other complaints. Hoping to go to [facility]. Discussed with her that her culture from the OR is now showing an organism growing meaning the likelihood of infection. Objective N/V intact, splint C/D/I, capillary refill less than 2 sec., toes mobile Date Time Temp Pulse Resp B/P (MAP) Pulse Ox O2 Delivery O2 Flow Rate FiO2 10/13/17 07:06 36.5 58 19 137/68 (91) 97 Room Air 10/12/17 23:30 Room Air 10/12/17 23:15 36.8 58 17 139/65 (89) 97 Room Air 10/12/17 15:25 97 Room Air 10/12/17 15:25 36.9 50 16 107/50 (69) 97 Room Air Laboratory Results 24 Hours: Test 10/13/17 05:18 Hematocrit 28.5 % Hemoglobin 9.4 g/dL Assessment & Plan Assessment: POD #3 s/p Left ankle arthroscopy with resection of lateral meniscoid lesion, Synovectomy of the ankle joint, Open tenosynovectomy of the peroneus longus and peroneus brevis, Debridement of peroneus longus and peroneus brevis, Exostectomy of the lateral calcaneus. -soft tissue intra-op cultures showing GRAM - BACILLI - currently on Cipro PO -Consult ID Team and await their recommendations -remain in splint, ice/elevate for swelling, hold ASA -would like referral to [facility], is NWB on ankle and states she has a lot of steps at home. will discuss with CM - awaiting authorization GI Consult recommendations: have outpatient eval for both EGD colonoscopy after her recovery phase, no evidence right now of any acute ongoing active GI bleeding. PPI daily, regular diet and avoid NSAIDs. Inhouse Planning Pain Management: PO Tylenol, Oxy IR DVT Prophylaxis: TEDs, SCDs
[2017-10-13] MEDS: CIPROFLOXACIN 250 MG TAB PO SCH (09:27)
--- NOTE | 2017-10-13 10:40 | Progress Note ---
Progress Note Date of Service Oct 13, 2017. Progress Note ID Consult Dictated #[id number] A/P: 1. Tenosynovitis left ankle -Continue cipro, follow final cultures -Will follow, thank you
--- NOTE | 2017-10-13 11:10 | INFECT. DISEASE CONSULTATION ---
DATE OF CONSULTATION: 10/13/2017 HISTORY OF PRESENT ILLNESS: This is an 82-year-old female who was admitted to the hospital for worsening left pain and swelling. She had been previously on antibiotics for a 2-week period of time. She does not remember the name of the antibiotic, but states she was off of antibiotics altogether for a week prior to admission. She was being followed by orthopedic surgery and 2 joint aspirations were attempted, which were essentially negative. I do not have records of this. She also reportedly had an outpatient MRI, which I do not have the report; however, per the H&P, this did show inflammatory tissue at the peroneal tendon and there was questionable phlegmon. The patient was last seen in the office on the 08 of October and continued pain and swelling and she was unable to weightbear, so she elected for surgical management. She was subsequently admitted to the hospital on the and taken to the operating room. It was found that she had tenosynovitis as well as synovitis of the left ankle with partial tendon tears. Intraoperative cultures were obtained and are growing gram negative rods. She has been afebrile since admission and she denies any fevers or chills prior to admission. She did receive Cipro and Ancef perioperatively, but is currently not on any antibiotics. Her white blood cell count has been normal and today, it is 5.8. She did have a positive UA, but her urine culture is negative. No blood cultures were obtained. There is no imaging from this admission to review. She is currently stable off of antibiotics. She is sitting out of bed to chair. She states overall she feels better, but continues to have pain in the left ankle. Her operative dressings remain in place. She denies any shortness of breath, cough, nausea, vomiting, diarrhea or abdominal pain. Her remaining review of systems is unremarkable. PAST MEDICAL HISTORY: Significant for hypertension, chronic low back pain, hiatal hernia, and type 2 diabetes. SOCIAL HISTORY: Negative for alcohol use, drug use or tobacco use. She denies any previous surgeries. ALLERGIES: INCLUDE PSEUDOEPHEDRINE, LORATADINE AND PREDNISONE. She has no antibiotic allergies. FAMILY HISTORY: Noncontributory. CURRENT MEDICATIONS: Include aspirin, insulin, Protonix, ciprofloxacin, atenolol, multivitamin, Detrol-LA, Colace, Roxicodone, Tylenol, milk of magnesia, Benadryl, Maalox, and Zofran. PHYSICAL EXAMINATION: VITAL SIGNS: She is afebrile, pulse 50, respiratory rate 19, blood pressure 137/68, and oxygen saturation is 97% on room air. GENERAL: She is awake, alert and oriented x3. She is in no acute distress. HEENT: Mucous membranes are moist. Extraocular muscles are intact. HEART: Regular. LUNGS: Clear. ABDOMEN: Soft. EXTREMITIES: There is no right lower extremity edema. Left lower extremity, operative dressing is clean, dry and intact. LABORATORY STUDIES: CBC today reveals a white blood cell count of 5.8, hemoglobin 9.4, and platelets are 157. Chemistry panel reveals a sodium of 136, potassium 3.7, chloride 102, bicarbonate 27, BUN 30, creatinine 1.1, and glucose is 126. Urinalysis was abnormal with negative urine culture. OR culture is growing gram negative rods with sensitivities pending. ASSESSMENT AND PLAN: Left ankle tenosynovitis. She will continue on Cipro for now pending additional culture data. Thank you for this consultation.
[2017-10-13] MEDS: CEFTRIAXONE SOD INJ 1 GM in DEXTROSE 5% 50ML 50 ML IV SCH (14:46)
[2017-10-13 15:10] VITALS: O2SAT 95
[2017-10-13 15:36] VITALS: BP 118/68; PULSE 62; TEMP 36.8; O2SAT 95
--- NOTE | 2017-10-13 16:52 | Progress Note ---
Internal Med Progress Note Date of Service: Oct 13, 2017. Provider Documentation: SUBJECTIVE: Seen and examined at bedside Doing well Had Physical therapy today Leg pain is controlled Denies chest pain, SOB, dizziness, abd pain No bleeding issues No other complaints Family at bedside OBJECTIVE: Vital Signs-as noted below Physical Exam: General Appearance:Moderately built and nourished, no apparent distress Head: normocephalic, Atraumatic Eyes: normal inspection, EOMI, PERRL Neck: supple, Trachea midline Respiratory/Chest: Normal breath sounds, CTA Cardiovascular: S1, S2, No murmur Abdomen/GI:Soft, Non tender, Bowel sounds present Extremities/Musculoskelatal:normal inspection, LLE in bandage, no edema Neurologic/Psych:AAOX3, grossly no focal neurological deficits Skin: normal color, warm Lab data as noted below. ASSESSMENT & PLAN: Left ankle severe peroneal tenosynovitis and Partial tears of peroneus muscles Left ankle lateral meniscoid lesion. Exostosis of the lateral calcaneus. S/P Ankle surgery POD # 3 Continue management per Primary team Pain control Bowel regimen to prevent constipation Monitor for Post Op anemia PT/OT Wound Culture:Morganella Continue ceftriaxone Day# 1 as per ID UTI ruled out H/O Urinary retention, patient intermittently straight cath at home Urine culture:No growth DC Cipro Heme Positive Stools: No active bleeding Patient reports H/O Hemorrhoid Positive FOBT Anemia work up normal Continue PPI Appreciate GI input EGD/Colonoscopy as outpatient No active bleeding issues Hb stable Continue ASA, monitor Hb HTN Stable Continue usual meds Hypomagnesemia: Resolved monitor H/O nonocclusive CAD Denies chest pain Continue home meds DM II: A1C:6.5 Hold PO meds Continue ISS, Lantus while hospitalized DVT Px: SCDs . Disposition: Per Primary Team Vital Signs: Date Time Temp Pulse Resp B/P (MAP) Pulse Ox O2 Delivery O2 Flow Rate FiO2 10/13/17 15:36 36.8 62 17 118/68 (85) 95 Room Air 10/13/17 15:10 95 Room Air 10/13/17 08:00 Room Air 10/13/17 07:06 36.5 58 19 137/68 (91) 97 Room Air 10/12/17 23:30 Room Air 10/12/17 23:15 36.8 58 17 139/65 (89) 97 Room Air Lab Results: Results Past 24 Hours Test 10/12/17 20:16 10/13/17 05:18 10/13/17 07:50 10/13/17 11:50 Range/Units Bedside Glucose 165 126 241 70-90 mg/dl White Blood Count 5.87 4.8-10.8 K/uL Red Blood Count 3.12 4.2-5.4 M/uL Hemoglobin 9.4 12.0-16.0 g/dL Hematocrit 28.5 37-47 % Mean Corpuscular Volume 91.3 80-100 fL Mean Corpuscular Hemoglobin 30.1 25-34 pg Mean Corpuscular Hemoglobin Concent 33.0 32-36 g/dl RDW Standard Deviation 45.5 36.4-46.3 fL RDW Coefficient of Variation 13.8 11.5-14.5 % Platelet Count 157 130-400 K/uL Mean Platelet Volume 10.0 7.4-10.4 fL Sodium Level 136 136-145 mmol/L Potassium Level 3.7 3.5-5.1 mmol/L Chloride Level 102 98-107 mmol/L Carbon Dioxide Level 27 21-32 mmol/L Anion Gap 7.0 3-11 mmol/L Blood Urea Nitrogen 30 7-18 mg/dl Creatinine 1.12 0.60-1.20 mg/dl Est Creatinine Clear Calc Drug Dose 35.0 ml/min Estimated GFR () 52.2 Estimated GFR (Non- 45.1 BUN/Creatinine Ratio 27.2 10-20 Random Glucose 126 70-99 mg/dl Calcium Level 8.4 8.5-10.1 mg/dl Magnesium Level 1.9 1.8-2.4 mg/dl
[2017-10-13] MEDS: TOLTERODINE TARTRATE LA 4 MG CAPCR PO SCH (20:39)
[2017-10-13] MEDS: ASPIRIN 81 MG ECTAB PO SCH (20:39)
[2017-10-13] MEDS: MAGNESIUM HYDROXIDE SUSP 30 ML UDC PO PRN (20:43)
[2017-10-13] MEDS ORDERED: POLYETHYLENE (MIRALAX) 17 GM PACK PO ONE (21:02)
[2017-10-13] MEDS ORDERED: LACTULOSE SYRUP 30 GM/45 ML UDP PO STA (21:02)
[2017-10-13] MEDS ORDERED: DOCUSATE SODIUM/SENNA 50/8.6MG TAB PO ONE (21:02)
[2017-10-13] MEDS ORDERED: POLYETHYLENE (MIRALAX) 17 GM PACK PO PRN (21:15)
[2017-10-13 23:35] VITALS: BP 149/61; PULSE 67; TEMP 37.3; O2SAT 96
[2017-10-14] MEDS: ACETAMINOPHEN 325 MG TAB PO PRN ×2 (00:04→21:10)
[2017-10-14] MEDS ORDERED: BISACODYL 10 MG SUPP PR PRN (03:15)
[2017-10-14 07:02] LABS: HEMATOCRIT 30.7 % (37-47); HEMOGLOBIN 10.4 g/dL (12.0-16.0); MEAN CORPUSCULAR HEMOGLOBIN 30.5 pg (25-34); MEAN CORPUSCULAR HGB CONC 33.9 g/dl (32-36); PLATELET COUNT 189 K/uL (130-400); RED CELL DISTRIBUTION WIDTH CV 13.7 % (11.5-14.5); RED CELL DISTRIBUTION WIDTH SD 44.7 fL (36.4-46.3); WHITE BLOOD COUNT 7.91 K/uL (4.8-10.8)
[2017-10-14 07:30] VITALS: BP 136/66; PULSE 56; TEMP 36.4; O2SAT 98
[2017-10-14] MEDS: INSULIN ASPART 100 UNITS/ML 3 ML PEN SC SCH ×4 (08:00→21:10)
[2017-10-14] MEDS: DOCUSATE SODIUM/SENNA 50/8.6MG TAB PO SCH ×2 (08:31→21:04)
[2017-10-14] MEDS: MULTIVITAMIN TAB PO SCH (08:32)
[2017-10-14] MEDS: PANTOprazole SOD 40 MG TAB PO SCH ×2 (08:33→21:04)
[2017-10-14] MEDS: INSULIN GLARGINE SOLOSTAR 100 UNITS/ML 3 ML PEN SC SCH (08:39)
[2017-10-14] MEDS: CEFTRIAXONE SOD INJ 1 GM in DEXTROSE 5% 50ML 50 ML IV SCH (13:35)
--- NOTE | 2017-10-14 13:35 | Progress Note ---
Subjective Date of Service: Oct 14, 2017. Subjective Pt evaluation today including: conversation w/ patient, physical exam, chart review, lab review pt seen in followup, changed to rocephin yesteray due to + OR culture with Morganella resistant to cipro. tolerating well. less pain today, states she will be d/c to snf for rehab. no f/c. no abd pain, no n/v/d. eating lunch on my exam. wbc nml today. all remaining ros reviewed and are negative. Objective Vital Signs Date Time Temp Pulse Resp B/P (MAP) Pulse Ox O2 Delivery O2 Flow Rate FiO2 10/14/17 07:30 36.4 56 16 136/66 (89) 98 Room Air 10/14/17 07:20 Room Air 10/14/17 00:05 Room Air 10/13/17 23:35 37.3 67 16 149/61 (90) 96 Room Air 10/13/17 15:36 36.8 62 17 118/68 (85) 95 Room Air 10/13/17 15:10 95 Room Air Physical Exam General Appearance: WD/WN, no apparent distress Eyes: normal inspection, EOMI Neck: supple Respiratory/Chest: lungs clear, normal breath sounds, no respiratory distress Cardiovascular: regular rate, rhythm, no edema Abdomen: soft Extremities: non-tender Neurologic/Psychiatric: alert, oriented x 3 Skin: normal color Comments: wound dressing intact. Laboratory Results Item Value Date Time Gram Stain - Final Resulted 10/10/17 0000 Tissue Ankle Left Gram Stain - Final Resulted 10/10/17 0000 Tissue Ankle Left Last 24 Hours Test 10/13/17 17:04 10/13/17 20:20 10/14/17 05:59 10/14/17 08:17 Bedside Glucose 157 mg/dl 248 mg/dl 143 mg/dl White Blood Count 7.91 K/uL Red Blood Count 3.41 M/uL Hemoglobin 10.4 g/dL Hematocrit 30.7 % Mean Corpuscular Volume 90.0 fL Mean Corpuscular Hemoglobin 30.5 pg Mean Corpuscular Hemoglobin Concent 33.9 g/dl RDW Standard Deviation 44.7 fL RDW Coefficient of Variation 13.7 % Platelet Count 189 K/uL Mean Platelet Volume 10.0 fL Magnesium Level 2.2 mg/dl Test 10/14/17 12:04 Bedside Glucose 165 mg/dl Assessment and Plan (1) Peroneal tenosynovitis Assessment & Plan: will continue on rocephin - would give 4 weeks from time of OR, tentative stop date 11/07. will need weekly cbc,cmp,esr while on abx. can follow with ID post d/c from hospital.
--- NOTE | 2017-10-14 13:43 | Orthopedic Progress Note ---
Orthopedic Progress Note Date of Service Oct 14, 2017. Subjective Post OP Day: 4 Reports: feeling well, pain controlled w PO medications, Denies: complaints, chest pain, SOB, nausea / vomiting, light headedness, calf pain Objective N/V intact, splint C/D/I, capillary refill less than 2 sec., dressing C/D/I, A& O x3, toes mobile Date Time Temp Pulse Resp B/P (MAP) Pulse Ox O2 Delivery O2 Flow Rate FiO2 10/14/17 07:30 36.4 56 16 136/66 (89) 98 Room Air 10/14/17 07:20 Room Air 10/14/17 00:05 Room Air 10/13/17 23:35 37.3 67 16 149/61 (90) 96 Room Air 10/13/17 15:36 36.8 62 17 118/68 (85) 95 Room Air 10/13/17 15:10 95 Room Air Laboratory Results 24 Hours: Test 10/14/17 05:59 Hematocrit 30.7 % Hemoglobin 10.4 g/dL Assessment & Plan Assessment: POD #4 s/p Left ankle arthroscopy with resection of lateral meniscoid lesion, Synovectomy of the ankle joint, Open tenosynovectomy of the peroneus longus and peroneus brevis, Debridement of peroneus longus and peroneus brevis, Exostectomy of the lateral calcaneus. -soft tissue intra-op cultures showing GRAM - BACILLI - currently on Cipro PO -Consult ID Team and await their recommendations -ID Note 10/14/17: will continue on rocephin - would give 4 weeks from time of OR, tentative stop date 11/07. will need weekly cbc,cmp,esr while on abx. can follow with ID post d/c from hospital. -remain in splint, ice/elevate for swelling, hold ASA -would like referral to [facility], is NWB on ankle and states she has a lot of steps at home. will discuss with CM - awaiting authorization GI Consult recommendations: have outpatient eval for both EGD colonoscopy after her recovery phase, no evidence right now of any acute ongoing active GI bleeding. PPI daily, regular diet and avoid NSAIDs. (1) Peroneal tenosynovitis Discharge Planning Discharge Planning: rehab hospital
--- NOTE | 2017-10-14 13:45 | Discharge Instructions ---
Discharge Instructions Date of Service Oct 14, 2017. Admission Reason for Admission: Left Ankle Peroneal Tendinitis Discharge Discharge Diagnosis / Problem: left ankle tenosynovitis Discharge Goals Goal(s): Decrease discomfort, Improve function, Increase independence Activity Recommendations Activity Level: Up Ad Jesenia Therapies: Weight Bearing Status (NWB left leg) Weightbearing Status: Left non-weightbearing . Additional Information Patient informed of condition: Yes Advance Directives: No DNR: No Level of Care: Acute Rehab Communicable Disease: No Prognosis: Stable Preciado Catheter: No Instructions / Follow-Up Instructions / Follow-Up ACTIVITY RECOMMENDATIONS: Limitations: No weight bearing to affected limb at all times. SPECIAL CARE INSTRUCTIONS: * Some drainage onto the dressing is normal and is no cause for alarm. * Some swelling is natural especially after walking. * When resting, keep your foot elevated above the level of your heart. * Call [facility] if you notice: -Increased drainage -Fever over 101 degrees F -Severe constant pain BANDAGE: * Leave bandage/cast in place unless otherwise directed. * Keep bandage/cast dry at all times. FOLLOW UP VISIT WITH DR. DOLL If appointment is not already scheduled: Please call [facility] after you get home today to schedule a follow-up appointment for [address] Doll at . Please schedule follow up with Infectious Disease Dr Ivory Allison to follow 2-3 weeks from time of discharge. GI Consult recommendations: have outpatient eval for both EGD colonoscopy after her recovery phase, no evidence right now of any acute ongoing active GI bleeding. PPI daily, regular diet and avoid NSAIDs. Current Hospital Diet Patient's current hospital diet: Diabetes Type 2 Diet, AHA Diet (Heart Healthy) Discharge Diet Recommended Diet: AHA Diet (Heart Healthy), Diabetes Type 2 Diet Procedures Procedures Performed: 1. Left Ankle Arthroscopy with resection lateral meniscoid lesion, 2. Synovectomy ankle joint 3. Open Tenosynovectomy peroneus longus and brevis tendons 4. Debridement peroneus longus and brevis 5. Exostosectomy of lateral calcaneus Pending Studies Studies pending at discharge: no Physician Orders On Transfer Additional Orders: will need weekly cbc,cmp,esr while on antibiotics Laboratory Results Hemoglobin A1c Test 10/11/17 04:11 Range/Units Estimated Average Glucose 140 mg/dl Hemoglobin A1c 6.5 H 4.5-5.6 % Medical Emergencies . Who to Call and When: Medical Emergencies: If at any time you feel your situation is an emergency, please call 911 immediately. . Non-Emergent Contact Non-Emergency issues call your: Primary Care Provider, Surgeon . . "Provider Documentation" section prepared by Lamonte Skelton. . Core Measure Problem Core Measures: None
[2017-10-14 15:03] VITALS: BP 150/63; PULSE 74; TEMP 36.9; O2SAT 98
[2017-10-14 15:25] VITALS: O2SAT 98
--- NOTE | 2017-10-14 16:48 | Progress Note ---
Internal Med Progress Note Date of Service: Oct 14, 2017. Provider Documentation: SUBJECTIVE: Patient s/p PICC line. denies pain OBJECTIVE: Physical Exam: General Appearance: no apparent distress Head: normocephalic, Atraumatic Eyes: normal inspection Neck: supple, Trachea midline Respiratory/Chest: Normal breath sounds, CTA Cardiovascular: S1, S2, No murmur Abdomen/GI:Soft, Non tender, Bowel sounds present Extremities/Musculoskelatal: PICC line right upper extremity Neurologic/Psych:AAOX3 Skin: normal color, warm ASSESSMENT & PLAN: Left ankle severe peroneal tenosynovitis and Partial tears of peroneus muscles Left ankle lateral meniscoid lesion. Exostosis of the lateral calcaneus. S/P Ankle surgery POD # 4 Patient is s/p PICC line on 10/14/17 for treatment for left ankle tenosynovitis and as per Infectious disease consult "will continue on rocephin - would give 4 weeks from time of OR, tentative stop date 11/07" UTI ruled out Pain controlled, Bowel regimen to prevent constipation PT/OT Monitor for Post Op anemia GI consultation: "Without evidence of acute GI bleeding. Have an anemia with heme positivity. After her recovery phase she should have outpatient evaluation for both EGD colonoscopy for her anemia." Continue ASA HTN Stable Continue atenolol Hypomagnesemia:Resolved H/O nonocclusive CAD Denies chest pain Continue home medications DM II: A1C:6.5 Hold PO medications Continue ISS, Lantus while hospitalized DVT Px: SCDs . Vital Signs: Date Time Temp Pulse Resp B/P (MAP) Pulse Ox O2 Delivery O2 Flow Rate FiO2 10/14/17 15:03 36.9 74 16 150/63 (92) 98 Room Air 10/14/17 07:30 36.4 56 16 136/66 (89) 98 Room Air 10/14/17 07:20 Room Air 10/14/17 00:05 Room Air 10/13/17 23:35 37.3 67 16 149/61 (90) 96 Room Air Lab Results: Results Past 24 Hours Test 10/13/17 17:04 10/13/17 20:20 10/14/17 05:59 10/14/17 08:17 Range/Units Bedside Glucose 157 248 143 70-90 mg/dl White Blood Count 7.91 4.8-10.8 K/uL Red Blood Count 3.41 4.2-5.4 M/uL Hemoglobin 10.4 12.0-16.0 g/dL Hematocrit 30.7 37-47 % Mean Corpuscular Volume 90.0 80-100 fL Mean Corpuscular Hemoglobin 30.5 25-34 pg Mean Corpuscular Hemoglobin Concent 33.9 32-36 g/dl RDW Standard Deviation 44.7 36.4-46.3 fL RDW Coefficient of Variation 13.7 11.5-14.5 % Platelet Count 189 130-400 K/uL Mean Platelet Volume 10.0 7.4-10.4 fL Magnesium Level 2.2 1.8-2.4 mg/dl Test 10/14/17 12:04 Range/Units Bedside Glucose 165 70-90 mg/dl
[2017-10-14] MEDS: TOLTERODINE TARTRATE LA 4 MG CAPCR PO SCH (21:00)
[2017-10-14] MEDS: ASPIRIN 81 MG ECTAB PO SCH (21:04)
[2017-10-14 23:00] VITALS: BP 137/64; PULSE 69; TEMP 37; O2SAT 95
[2017-10-15 06:10] LABS: HEMATOCRIT 27.9 % (37-47); HEMOGLOBIN 9.5 g/dL (12.0-16.0); MEAN CELL VOLUME 89.4 fL (80-100); MEAN CORPUSCULAR HEMOGLOBIN 30.4 pg (25-34); MEAN CORPUSCULAR HGB CONC 34.1 g/dl (32-36); MEAN PLATELET VOLUME 9.6 fL (7.4-10.4); PLATELET COUNT 169 K/uL (130-400); RED CELL DISTRIBUTION WIDTH CV 13.7 % (11.5-14.5); RED CELL DISTRIBUTION WIDTH SD 44.6 fL (36.4-46.3); WHITE BLOOD COUNT 6.96 K/uL (4.8-10.8)
[2017-10-15] MEDS: INSULIN ASPART 100 UNITS/ML 3 ML PEN SC SCH ×2 (08:00→12:16)
[2017-10-15 08:08] VITALS: BP 138/58; PULSE 62; TEMP 36.3; O2SAT 96
[2017-10-15 08:45] VITALS: O2SAT 96
[2017-10-15] MEDS: PANTOprazole SOD 40 MG TAB PO SCH (08:51)
[2017-10-15] MEDS: MULTIVITAMIN TAB PO SCH (08:51)
[2017-10-15 08:53] VITALS: BP 152/71; PULSE 69
[2017-10-15] MEDS: DOCUSATE SODIUM/SENNA 50/8.6MG TAB PO SCH (08:54)
[2017-10-15] MEDS: INSULIN GLARGINE SOLOSTAR 100 UNITS/ML 3 ML PEN SC SCH (08:57)
[2017-10-15] MEDS ORDERED: ONDA8TAB6 PO (09:18)
[2017-10-15] MEDS ORDERED: CEFT1INJ57 IV (09:18)
[2017-10-15] MEDS ORDERED: RXC5 PO (09:18)
[2017-10-15] MEDS ORDERED: ASPEC81 PO (09:18)
--- NOTE | 2017-10-15 09:26 | Orthopedic Progress Note ---
Orthopedic Progress Note Date of Service Oct 15, 2017. Subjective Post OP Day: 5 Reports: feeling well, pain controlled w PO medications, Denies: complaints, chest pain, SOB, nausea / vomiting, light headedness, calf pain Objective N/V intact, splint C/D/I, capillary refill less than 2 sec., dressing C/D/I, A& O x3, toes mobile Date Time Temp Pulse Resp B/P (MAP) Pulse Ox O2 Delivery O2 Flow Rate FiO2 10/15/17 08:53 69 152/71 (98) 10/15/17 08:45 96 Room Air 10/15/17 08:08 36.3 62 16 138/58 (84) 96 Room Air 10/15/17 00:00 Room Air 10/14/17 23:00 37.0 69 18 137/64 (88) 95 Room Air 10/14/17 15:25 98 Room Air 10/14/17 15:03 36.9 74 16 150/63 (92) 98 Room Air Laboratory Results 24 Hours: Test 10/15/17 05:33 Hematocrit 27.9 % Hemoglobin 9.5 g/dL Assessment & Plan Assessment: POD #5 s/p Left ankle arthroscopy with resection of lateral meniscoid lesion, Synovectomy of the ankle joint, Open tenosynovectomy of the peroneus longus and peroneus brevis, Debridement of peroneus longus and peroneus brevis, Exostectomy of the lateral calcaneus. -soft tissue intra-op cultures showing GRAM - BACILLI - -Consult ID Team and await their recommendations -ID Note 10/14/17: will continue on rocephin - would give 4 weeks from time of OR, tentative stop date 11/07. will need weekly cbc,cmp,esr while on abx. can follow with ID post d/c from hospital. -remain in splint, ice/elevate for swelling, hold ASA -would like referral to [facility], is NWB on ankle and states she has a lot of steps at home. will discuss with CM - may transfer today if bed available GI Consult recommendations: have outpatient eval for both EGD colonoscopy after her recovery phase, no evidence right now of any acute ongoing active GI bleeding. PPI daily, regular diet and avoid NSAIDs. (1) Peroneal tenosynovitis Discharge Planning Discharge Planning: rehab hospital
--- NOTE | 2017-10-15 10:47 | Progress Note ---
Internal Med Progress Note Date of Service: Oct 15, 2017. Provider Documentation: SUBJECTIVE: Patient awaiting transfer to rehabilitation facility, currently on orthopedic service. Patient sitting in chair. Denies acute pain OBJECTIVE: Physical Exam: General Appearance: no apparent distress Head: normocephalic, Atraumatic Eyes: normal inspection Neck: supple, Trachea midline Respiratory/Chest: Normal breath sounds, CTA Cardiovascular: S1, S2, No murmur Abdomen/GI:Soft, Non tender, Bowel sounds present Extremities/Musculoskelatal: PICC line right upper extremity, left ankle in dressing, left foot with ice pack Neurologic/Psych:AAOX3 ASSESSMENT & PLAN: Left ankle severe peroneal tenosynovitis and Partial tears of peroneus muscles Left ankle lateral meniscoid lesion. Exostosis of the lateral calcaneus. S/P Ankle surgery POD # 5 Patient is s/p PICC line on 10/14/17 for treatment for left ankle tenosynovitis with Morganella Morganii bacteria and as per Infectious disease consult is to be on on rocephin for 4 weeks from time of OR, tentative stop date 11/07 UTI ruled out Pain controlled, Bowel regimen to prevent constipation PT/OT Monitor for Post Op anemia GI consultation: "Without evidence of acute GI bleeding. Have an anemia with heme positivity. After her recovery phase she should have outpatient evaluation for both EGD colonoscopy for her anemia." Continue ASA HTN Stable Continue atenolol Hypomagnesemia:Resolved H/O nonocclusive CAD Denies chest pain Continue home medications DM II: A1C:6.5 Hold PO medications Continue ISS, Lantus while hospitalized DVT Px: SCDs . Disposition: awaiting transfer to rehabilitation facility, currently on orthopedic service Vital Signs: Date Time Temp Pulse Resp B/P (MAP) Pulse Ox O2 Delivery O2 Flow Rate FiO2 10/15/17 08:53 69 152/71 (98) 10/15/17 08:45 96 Room Air 10/15/17 08:08 36.3 62 16 138/58 (84) 96 Room Air 10/15/17 07:55 Room Air 10/15/17 00:00 Room Air 10/14/17 23:00 37.0 69 18 137/64 (88) 95 Room Air 10/14/17 15:25 98 Room Air 10/14/17 15:03 36.9 74 16 150/63 (92) 98 Room Air Lab Results: Results Past 24 Hours Test 10/14/17 12:04 10/14/17 17:10 10/14/17 20:48 10/15/17 05:33 Range/Units Bedside Glucose 165 178 190 70-90 mg/dl White Blood Count 6.96 4.8-10.8 K/uL Red Blood Count 3.12 4.2-5.4 M/uL Hemoglobin 9.5 12.0-16.0 g/dL Hematocrit 27.9 37-47 % Mean Corpuscular Volume 89.4 80-100 fL Mean Corpuscular Hemoglobin 30.4 25-34 pg Mean Corpuscular Hemoglobin Concent 34.1 32-36 g/dl RDW Standard Deviation 44.6 36.4-46.3 fL RDW Coefficient of Variation 13.7 11.5-14.5 % Platelet Count 169 130-400 K/uL Mean Platelet Volume 9.6 7.4-10.4 fL Test 10/15/17 08:01 Range/Units Bedside Glucose 134 70-90 mg/dl
[2017-10-15] MEDS: CEFTRIAXONE SOD INJ 1 GM in DEXTROSE 5% 50ML 50 ML IV SCH (12:11)
[2017-10-15 12:31] VITALS: BP 152/71; PULSE 69; TEMP 36.3; O2SAT 96
[2017-10-15] MEDS: OXYCODONE HCL IR 5 MG TAB (IMMEDIATE RELEASE) PO PRN (14:08)
[2017-10-15 14:58] VITALS: BP 113/68; PULSE 60; TEMP 36.7; O2SAT 95
--- NOTE | 2017-10-18 22:41 | Discharge Summary ---
Orthopedic Discharge Summary Admission Date/Reason Oct 10, 2017 at 18:11 Left Ankle Peroneal Tendinitis. Discharge Date/Disposition Oct 15, 2017 Rehab Diagnosis Principal Diagnosis: left peroneal tendinitis Procedure(s) Performed 1. Left ankle arthroscopy with resection of lateral meniscoid lesion. 2. Synovectomy of the ankle joint. 3. Open tenosynovectomy of the peroneus longus and peroneus brevis. 4. Debridement of peroneus longus and peroneus brevis. 5. Exostectomy of the lateral calcaneus Consultations Internal medicine GI Infectious disease Medication Reconciliation New Medications: Ceftriaxone Sod (Rocephin) 1 Gm Inj 1 GM IV DAILY for 28 Days, #28 VIAL Ondansetron Hcl (Zofran) 8 Mg Tab 8 MG PO Q8 PRN for Nausea, #20 TAB Aspirin (Aspirin EC Low Dose) 81 Mg Ectab 81 MG PO QPM for 30 Days, #60 TAB Oxycodone HCl (Oxycodone HCl) 5 Mg Tab 5-10 MG PO Q4H PRN for Pain, #60 TAB Continued Medications: Atenolol (Tenormin) 50 Mg Tab 50 MG PO QAM, TAB Biotin (Biotin) 1 Mg Cap 1 MG PO 3XWEEK Cranberry (Vaccinium Macrocarp (Cranberry) 500 Mg Cap 1000 MG PO DAILY Glipizide (Glipizide Er) 5 Mg Tab 1 TAB PO BID for 90 Days, #180 TAB 3 Refills Metformin Hcl (Glucophage) 500 Mg Tab 500 MG PO QAM, TAB Tolterodine Tartrate (Detrol LA) 4 Mg Capcr 1 CAP PO QPM for 90 Days, CAP 3 Refills [Premarin Cr] () 1 DOSE TOP 2XWEEK Discontinued Medications: Aspirin (Aspirin Ec) 81 Mg Tab 81 MG PO QPM PT WILL CHECK WITH SURGEON Naproxen (Naprosyn) 500 Mg Tab 500 MG PO BID, TAB PT WILL CHECK WITH SURGEON Admission Physical Exam As per Admitting History & Physical. Hospital Course (1) Peroneal tenosynovitis The patient was admitted on 10.10.17 and underwent the above noted procedure. The patient was doing well with pain control at the surgical site. She was kept for antibiotic treatment while cultures were completed. The cultures were noted to be growing MORGANELLA MORGANII that was resistant to Cipro. She was then placed on IV Rocephin with the plan for tx for 4 wks from the surgical procedure. She was then d/c'd to [facility] on 10.15.17. Discharge Instructions Please refer to the electronic Patient Visit Report (Discharge Instructions) for additional information.
== END 2017-10-15 15:07 ==
LOC: C.ACU 11:03 → C.3E 18:11 → ENRESERV 18:38
PROVIDERS: ADMIT Orthopaedic Surgery Sports Medicine; ATTEND Orthopaedic Surgery Sports Medicine
DX: M65.862 Other synovitis and tenosynovitis, left lower leg (principal); M65.872 Other synovitis and tenosynovitis, left ankle and foot; M76.72 Peroneal tendinitis, left leg; M89.9 Disorder of bone, unspecified; I10 Essential (primary) hypertension; E78.5 Hyperlipidemia, unspecified; E11.9 Type 2 diabetes mellitus without complications; I25.10 Atherosclerotic heart disease of native coronary artery without angina pectoris; Z79.899 Other long term (current) drug therapy; Z79.84 Long term (current) use of oral hypoglycemic drugs; Z88.8 Allergy status to other drugs, medicaments and biological substances